=== PATIENT | female | born 1985 | race Hispanic/Latino ===

== ENCOUNTER 2023-02-05 14:10 | Emergency (ER) | payer MEDICARE ==
[~2023-02-05] VITALS: Ht 162.6 cm; Wt 59.0 kg
[2023-02-05] MEDS ORDERED: MORPHINE 4 MG SYG IVP ONE (16:00)
[2023-02-05] MEDS ORDERED: ONDANSETRON 4MG INJ IVP ONE (16:00)
[2023-02-05] MEDS ORDERED: IBUP-2070 PO (16:44)
[2023-02-05] MEDS ORDERED: IBUPROFEN 800 MG TAB PO ONE (17:00)
[2023-02-05] MEDS ORDERED: HYDROCODONE/ACETAMINOPHEN 5/325 MG TAB ONE (17:08)
[2023-02-05] MEDS ORDERED: IBUPROFEN 400 MG TABLET ONE (17:17)
[2023-02-05 18:06] VITALS: BP 118/74
== END 2023-02-05 18:07 | disposition home or self-care (01) ==
LOC: EDH 14:10
DX: S20.211A Contusion of right front wall of thorax, initial encounter (principal); W18.09XA Striking against other object with subsequent fall, initial encounter; Y93.89 Activity, other specified; Y92.89 Other specified places as the place of occurrence of the external cause; Y99.8 Other external cause status
CPT/HCPCS: 71101